=== PATIENT | male | born 1930 | race Caucasian/White ===

== ENCOUNTER 2016-06-26 16:22 | Emergency (ER) | payer OTHER ==
[~2016-06-26] VITALS: Ht 182.9 cm; Wt 91.7 kg
[2016-06-26 16:54] LABS: CARBON DIOXIDE (BICARBONATE) 29.2 MEQ/L (20-31)
[2016-06-26 16:57] LABS: HEMATOCRIT 38.4 % (38.0-50.0); MCH 29.8 PG (29.0-34.0); MCHC 34.6 G/DL (30.0-36.0); MCV 86.1 FL (86-99); MEAN PLAT.VOLUME 9.6 uM^3 (9.0-12.4); PLATELET COUNT 162 K/uL (156-360); RBC DIS.WIDTH-CV 13.2 % (11.8-14.6); RBC DIS.WIDTH-SD 40.7 % (39-53); RED BLOOD COUNT 4.46 M/uL (4.00-5.50); WHITE BLOOD COUNT 8.7 K/uL (4.1-10.2)
[2016-06-26 17:05] LABS: CHLORIDE 98 mEq/L (99-109); POTASSIUM 4.4 mEq/L (3.7-5.4)
[2016-06-26 17:06] LABS: D-DIMER ELISA 0.43 mg/L FEU (< 0.57); SODIUM 133 mEq/L (136-147)
[2016-06-26 17:07] LABS: GLUCOSE 117 mg/dL (70-99)
[2016-06-26 17:09] LABS: ANION GAP 14 MEQ/L (2-14)
[2016-06-26 17:11] LABS: GFR ESTIMATE (CALCULATED) > 59 mL/min/
[2016-06-26 17:12] LABS: UREA NITROGEN (BUN) 19 mg/dL (9-23)
[2016-06-26 17:17] LABS: TROP-I INTERPRETATION NEGATIVE; TROPONIN-I < 0.01 ng/mL (0.0-0.30)
[2016-06-26 21:36] VITALS: BP 146/71
== END 2016-06-26 21:37 | disposition other institution (70) ==
LOC: EME → EDBD 16:22 → EME 16:22
PROVIDERS: Emergency Medicine
DX: R06.02 Shortness of breath (principal); J44.9 Chronic obstructive pulmonary disease, unspecified; E11.9 Type 2 diabetes mellitus without complications; I10 Essential (primary) hypertension; Z87.891 Personal history of nicotine dependence; R07.9 Chest pain, unspecified; R51 Headache; R41.0 Disorientation, unspecified
CPT/HCPCS: 71020; 80048; 82803; 83605; 83880; 84484; 85027; 85379; 87040; 93005; 99281; 99285; J1100